=== PATIENT | female | born 1945 | race Two or more races ===

== ENCOUNTER 2022-08-30 11:33 | Outpatient (CLI) | payer OTHER | END 2022-08-30 11:40 | disposition home or self-care (01) | LOC: SONOGRAMA 11:33 | PROVIDERS: ATTEND Pathology Anatomic Pathology & Clinical Pathology | DX: D34 Benign neoplasm of thyroid gland (principal); E04.9 Nontoxic goiter, unspecified; E06.3 Autoimmune thyroiditis; E78.2 Mixed hyperlipidemia ==